=== PATIENT | female | born 1935 | race Caucasian/White ===

== ENCOUNTER 2017-04-22 11:01 | Emergency (ER) | payer MEDICARE, OTHER ==
[~2017-04-22] VITALS: Ht 160 cm; Wt 70.2 kg
[~2017-04-22 11:01] MED LIST: ACIPHEX20 MG OR; ACIPHEX20 MG PO; ADVAIR DISK1 IN; ALBUTEROL90 MCG IN; AMOX/K CLAV500 MG PO; AMOXICILLIN500 MG; B-12250 MCG OR; BIAXIN250 MG OR; CIPROFLOXACN500 MG PO; COUGH MED; DARVOCET N-100100 - OR; ESTER-C500 M2 OR; FISH OIL OR; GABAPENTIN300 MG PO; HYDROCHLOROT25 MG OR; HYDROCO/APAP1 TA9 PO; IBUPROFEN600 MG OR; LIDODERM5 % EX; LISINOPRIL20 MG OR; MULTIVITAMIN OR; NEXIUM40 M1 PO; PNEUMOVAX 23 IM; PREMARIN0.3 MG OR; PRILOSEC40 MG OR; PROVENTIL HFA IN; VICODIN1 TAB PO; XANAX0.25 MG OR; ZETIA10 MG OR; ZOLOFT25 MG PO; ZOLOFT50 MG OR; ZOSTAVAX IM; ZYRTEC10 M1 OR; ZYRTEC10 MG PO; [UNRECOGNIZED DRUG - CODE] OR; [UNRECOGNIZED DRUG - OTHER] OR
[2017-04-22 12:39] VITALS: BP 126/78
[2017-04-22] MEDS ORDERED: EC-NAPROSYN500 MG PO ×2 (12:39→12:44)
== END 2017-04-22 12:45 | disposition home or self-care (01) ==
LOC: ED 11:01
DX: M25.462 Effusion, left knee (principal); M25.562 Pain in left knee; Z96.652 Presence of left artificial knee joint; W01.0XXA Fall on same level from slipping, tripping and stumbling without subsequent striking against object, initial encounter; Y93.01 Activity, walking, marching and hiking; Y92.029 Unspecified place in mobile home as the place of occurrence of the external cause